=== PATIENT | female | born 1975 ===

== ENCOUNTER 2018-04-22 11:55 | Outpatient (CLI) | payer OTHER | END 2018-04-22 11:56 | disposition home or self-care (01) | LOC: SONOGRAMA 11:55 | DX: N84.0 Polyp of corpus uteri (principal) ==

== ENCOUNTER 2024-03-10 05:55 | Day surgery (SDC) | payer OTHER ==
[2024-03-02 10:09] LABS: HEMATOCRIT 38.8 % (36.0-45.00); HEMOGLOBIN 13.6 g/dL (12.0-15.00); MEAN CELL VOLUME 88.8 fL (80.00-100.00); MEAN CORPUSCULAR HGB CONC 34.9 g/dl (32.0-36.0); PLATELET COUNT 229 K/uL (150-450); RED BLOOD COUNT 4.37 M/uL (4.00-6.00); RED CELL DISTRIBUTION WIDTH 13.4 % (11.5-14.5)
[2024-03-02 10:12] LABS: PH,URINE 5.5 (5.0-8.0); URINE APPEARANCE Cloudy; URINE BILIRRUBIN Negative (NEGATIVE); URINE BLOOD Trace; URINE COLOR Yellow; URINE GLUCOSE Negative (NEGATIVE); URINE KETONE Trace (NEGATIVE); URINE LEUKOCYTE Trace; URINE NITRATE Negative; URINE PROTEIN Negative (NEGATIVE); URINE UROBILINOGEN 0.2 E.U./dl
[2024-03-02 10:13] LABS: URINE BACTERIA 8211.4 uL (0.0-1933); URINE EPITHELIAL CELLS 127.2 uL (0.0-38.8); URINE WBC 62.3 uL (0.0-23.2)
[2024-03-02 10:28] LABS: INR 0.97; PARTIAL THROMBOPLASTIN TIME 28.5 SECONDS (22.0-34.0); PROTHROMBIN TIME 10.6 SECONDS (9.0-11.5)
[2024-03-02 10:37] LABS: URINE CAST 0.58 uL (0.0-1.40); URINE CRYSTALS MODERATE /HPF
[2024-03-02 11:07] LABS: ALBUMIN 3.8 gm/dL (3.4-5.0); BILIRUBIN TOTAL 0.48 mg/dL (0.3-1.2); CALCIUM 8.7 mg/dL (8.5-10.1); CREATININE SERUM 0.67 mg/dL (0.55-1.02); GFR 93.55; GLOBULINA 3.9 G/DL (2.4-3.5); POTASSIUM 4.17 mEq/L (3.5-5.1); TOTAL PROTEIN 7.7 gm/dL (6.4-8.2); TSH 0.661 uIU/mL (0.358-3.74)
[~2024-03-10 05:55] MED LIST: MEDROXYPROGESTE10 MG PO; SYNTHROID112 MCG PO
[2024-03-10] MEDS ORDERED: POVIDONE-IODINE 118 ML BOTT TOP ONE (12:01)
[2024-03-10] MEDS ORDERED: CEFOXITIN SODIUM 2,000 MG VIAL IV ONE (12:01)
[2024-03-10] MEDS ORDERED: TRAMADOL HCL50 MG PO (12:54)
[2024-03-10] MEDS ORDERED: MORPHINE SULFATE 4 MG/ML VIAL IV PRN (13:00)
[2024-03-10] MEDS ORDERED: PROMETHAZINE HCL 50 MG/ML AMPUL IM ONE (13:00)
[2024-03-10] MEDS ORDERED: ONDANSETRON HCL 2 MG/ML VIAL ONE (15:49)
[2024-03-10] MEDS ORDERED: ONDANSETRON HCL 2 MG/ML VIAL IV ONE (15:50)
== END 2024-03-10 18:25 | disposition home or self-care (01) ==
LOC: CIR.AMB 05:55
PROVIDERS: ATTEND Obstetrics & Gynecology
DX: D25.0 Submucous leiomyoma of uterus (principal); N84.0 Polyp of corpus uteri; N95.0 Postmenopausal bleeding; Z88.6 Allergy status to analgesic agent; E03.8 Other specified hypothyroidism; J45.909 Unspecified asthma, uncomplicated; J32.9 Chronic sinusitis, unspecified